=== PATIENT | female | born 1950 | race African-American/Black ===

== ENCOUNTER 2016-03-06 08:29 | Day surgery (SDC) | payer MEDICARE, OTHER ==
[2016-03-05 11:48] VITALS: BMI 31.5
[2016-03-06] MEDS ORDERED: LIDOCAINE HCL/PF 1% SDV 5ML VIAL ONE (10:15)
[2016-03-06] MEDS ORDERED: PROPOFOL 20 ML ONE ×3 (10:15)
[2016-03-06 11:28] VITALS: TEMP 97.6
[2016-03-06 12:33] VITALS: BP 122/72; PULSE 68
--- NOTE | 2016-03-09 13:46 | PATH ---
Surgical Pathology Report Patient Name: [facility]. Rec. #: [id number] /Age/Gender: 1950 (Age: 65) / F Account: [id number] Location: [facility]-ENDOSCOPY Taken: 03/06/2016 Received: 03/06/2016 Reported: 03/09/2016 Physicians: Cruz James M.D. Specimen(s) Received A: BX BODY B: BX ANTRUM C: BX DISTAL ESOPHAGUS D: BX CECAL POLYP Clinical History Screening, gastric ulcer Gastritis, esophageal dysmotility, rule out H. Pylori, severe diverticulosis, redundant colon, cecal polyp Final Diagnosis A. STOMACH, BODY, BIOPSY: GASTRIC OXYNTIC MUCOSA WITH MODERATE CHRONIC GASTRITIS. IMMUNOSTAIN FOR H. PYLORI IS NEGATIVE FOR ORGANISMS. B. STOMACH, ANTRUM, BIOPSY: GASTRIC ANTRAL MUCOSA WITH MODERATE CHRONIC GASTRITIS AND REACTIVE GASTROPATHY. IMMUNOSTAIN FOR H. PYLORI IS NEGATIVE FOR ORGANISMS. C. ESOPHAGUS, DISTAL, BIOPSY: SQUAMOUS EPITHELIUM WITH MARKED CHRONIC INFLAMMATION AND REFLUX TYPE CHANGES. NO COLUMNAR EPITHELIUM PRESENT (NO INTESTINAL METAPLASIA/BIOPSY ESOPHAGUS IDENTIFIED). D. COLON, CECUM, POLYP, POLYPECTOMY: TUBULAR ADENOMA. Comment: The cauterized margin of resection appears negative for adenoma; however, the completeness of resection is best assessed endoscopically. Electronically Signed Telly Wright M.D. Gross Description A. Received in formalin, labeled "biopsy body" is a riley, irregular portion of soft tissue measuring 0.4 cm in greatest dimension. The specimen is submitted in toto in one cassette. B. Received in formalin, labeled "biopsy antrum" are 4 riley, irregular portions of soft tissue ranging from 0.1-0.4 cm in greatest dimension. The specimens are submitted in toto in one cassette. C. Received in formalin, labeled "biopsy distal esophagus" is a riley, irregular portion of soft tissue measuring 0.4 cm in greatest dimension. The specimen is submitted in toto in one cassette. D. Received in formalin, labeled "cecal polyp" is a 1.0 x 0.9 x 0.6 cm riley, polypoid portion of soft tissue. The specimen is bisected and entirely submitted in one cassette. 03/06/201603/06/2016
== END 2016-03-06 13:00 | disposition home or self-care (01) ==
LOC: JASU-SURG 08:29 → JASU-ENDO 08:29
PROVIDERS: ATTEND Internal Medicine Gastroenterology
PROC: 0DB58ZX Excision of Esophagus, Via Natural or Artificial Opening Endoscopic, Diagnostic (ICD-10-PCS; 2016-03-06)
PROC: 0DB68ZX Excision of Stomach, Via Natural or Artificial Opening Endoscopic, Diagnostic (ICD-10-PCS; 2016-03-06)
PROC: 0DBH8ZX Excision of Cecum, Via Natural or Artificial Opening Endoscopic, Diagnostic (ICD-10-PCS; principal; 2016-03-06 10:00)
DX: Z12.11 Encounter for screening for malignant neoplasm of colon (principal); D12.0 Benign neoplasm of cecum; K57.30 Diverticulosis of large intestine without perforation or abscess without bleeding; K63.89 Other specified diseases of intestine; K64.8 Other hemorrhoids; K31.9 Disease of stomach and duodenum, unspecified; K29.61 Other gastritis with bleeding; R12 Heartburn; B19.20 Unspecified viral hepatitis C without hepatic coma
CPT/HCPCS: 88305-TC; 88342-TC